=== PATIENT | female | born 1955 | race Two or more races ===

== ENCOUNTER 2024-06-05 20:19 | Inpatient (IN) | payer MEDICARE, OTHER ==
[~2024-06-05] VITALS: Ht 167.6 cm; Wt 86.2 kg
[2024-06-05 20:15] VITALS: BP 143/73; TEMP 98; O2SAT 98
[2024-06-05] MEDS ORDERED: LORAZEPAM 0.5 MG TABLET PO PRN (21:00)
[2024-06-05] MEDS ORDERED: MAGNESIUM HYDROXIDE 30 ML UDC PO PRN (21:00)
[2024-06-05] MEDS: BLOOD SUGAR DIAGNOSTIC 1 EACH STRIP IN ONE (21:40)
[2024-06-05] MEDS ORDERED: AMLO2.5T4 PO (23:12)
[2024-06-05] MEDS ORDERED: HYDR50TA61 PO (23:12)
[2024-06-05] MEDS ORDERED: MELO-107 PO (23:12)
[2024-06-05] MEDS ORDERED: METF-442 PO (23:12)
[2024-06-05] MEDS ORDERED: SITA100T PO (23:12)
[2024-06-05] MEDS ORDERED: CLON0.5T4 PO (23:12)
[2024-06-05] MEDS ORDERED: DICL100G26 TP (23:12)
[2024-06-05] MEDS ORDERED: BUPR200T31 PO (23:12)
[2024-06-05] MEDS ORDERED: HYDR-3980 PO (23:12)
[2024-06-05] MEDS ORDERED: LURA80TA PO (23:12)
[2024-06-05] MEDS: ACETAMINOPHEN 325 MG TABLET PO PRN (23:16)
[2024-06-05] MEDS: ZOLPIDEM TARTRATE 5 MG TABLET PO PRN (23:52)
[2024-06-06] MEDS ORDERED: DEXTROSE 50%-WATER 50 ML DISP.SYRIN IV PRN
[2024-06-06] MEDS: BLOOD SUGAR DIAGNOSTIC 1 EACH STRIP IN SCH (07:18)
[2024-06-06 07:51] LABS: CHOLESTEROL 175 mg/dL (<200); HDL CHOLESTEROL 50 mg/dL (40-60); LDL 108 mg/dL (0-99); TRIGLYCERIDES 95 mg/dL (30-150)
[2024-06-06 07:52] LABS: ALBUMIN 3.3 g/dL (3.4-5.0); BILIRUBIN,TOTAL 0.6 mg/dL (0.2-1.0); CALCIUM, SERUM 8.5 mg/dL (8.5-10.1); CREATININE 0.9 mg/dL (0.6-1.3); POTASSIUM 3.6 mmol/L (3.5-5.1); TOTAL PROTEIN, SERUM 6.5 g/dL (6.4-8.2)
[2024-06-06 08:00] VITALS: BP 159/78; TEMP 98.7; O2SAT 98
[2024-06-06] MEDS: LINAGLIPTIN 5 MG TABLET PO SCH (08:40)
[2024-06-06] MEDS: HYDROCODONE/APAP 10/325MG TABLET PO SCH (08:40)
[2024-06-06] MEDS: METFORMIN 500 MG TABLET PO SCH (08:40)
[2024-06-06] MEDS: AMLODIPINE BESYLATE 2.5 MG TABLET PO SCH (08:41)
[2024-06-06] MEDS: MELOXICAM 7.5 MG TABLET PO SCH (08:41)
[2024-06-06] MEDS ORDERED: hydrOXYzine PAMOATE 50 MG CAPSULE PO PRN (11:00)
[2024-06-06] MEDS ORDERED: diphenhydrAMINE HCL 50 MG CAPSULE PO PRN (11:00)
[2024-06-06] MEDS: DICLOFENAC TOPICAL 100 GM TUBE TP SCH (11:48)
[2024-06-06] MEDS: buPROPion SR 100 MG TABLET.ER PO SCH (11:48)
[2024-06-06] MEDS ORDERED: hydrOXYzine PAMOATE 25 MG CAPSULE PO PRN (12:00)
[2024-06-06 16:00] VITALS: BP 133/67; TEMP 98.6; O2SAT 96
[2024-06-06] MEDS: risperiDONE 1 MG TABLET PO SCH (18:09)
[2024-06-06 20:00] VITALS: BP 149/67; TEMP 98.3; O2SAT 99
[2024-06-06] MEDS: clonazePAM 0.5 MG TABLET PO SCH (22:18)
[2024-06-06] MEDS: INSULIN REGULAR, HUMAN 100 UNIT/ML 3 ML VIAL SQ PRN (22:28)
[2024-06-07 08:00] VITALS: BP 150/71; TEMP 97.7; O2SAT 97
[2024-06-07 16:00] VITALS: BP 113/65; TEMP 97.9; O2SAT 99
[2024-06-07] MEDS: MAG HYDROX/AL HYDROX/SIMETH 30 ML UDC PO PRN (18:20)
[2024-06-07 20:00] VITALS: BP 134/67; TEMP 98.3; O2SAT 100
[2024-06-07] MEDS: ONDANSETRON 4 MG TAB.RAPDIS SL PRN (20:35)
[2024-06-08 08:00] VITALS: BP 133/80; TEMP 97.5; O2SAT 99
[2024-06-08 16:00] VITALS: BP 122/72; TEMP 98; O2SAT 97
[2024-06-08 19:53] VITALS: BP 126/73; TEMP 98.3; O2SAT 96
[2024-06-09 08:00] VITALS: BP 139/80; TEMP 98; O2SAT 98
[2024-06-09 16:00] VITALS: BP 134/90; TEMP 98; O2SAT 96
[2024-06-09 22:16] VITALS: BP 123/64; TEMP 98.2; O2SAT 97
[2024-06-10 08:00] VITALS: BP 131/74; TEMP 98.2; O2SAT 98
[2024-06-10 15:08] VITALS: BP 148/75; TEMP 98.6; O2SAT 100
[2024-06-10 20:37] VITALS: BP 160/78; TEMP 98.6; O2SAT 98
[2024-06-10 21:28] VITALS: BP 144/78; TEMP 97.2; O2SAT 97
[2024-06-11 08:00] VITALS: BP 136/52; TEMP 98.4; O2SAT 95
[2024-06-11 16:00] VITALS: BP 139/65; TEMP 98.4; O2SAT 98
[2024-06-11] MEDS: risperiDONE 1 MG TABLET PO SCH (16:34)
[2024-06-11 22:16] VITALS: BP 135/63; TEMP 98.4; O2SAT 98
[2024-06-12 08:00] VITALS: BP 142/69; TEMP 98.7; O2SAT 96
[2024-06-12 16:00] VITALS: BP 116/74; TEMP 98.1; O2SAT 98
[2024-06-12 22:39] VITALS: BP 120/54; TEMP 98.3; O2SAT 95
[2024-06-13 08:00] VITALS: BP 153/71; TEMP 97.9; O2SAT 96
[2024-06-13 08:13] VITALS: BP 125/97
== END 2024-06-13 12:40 | DRG 885 ==
LOC: GPS 20:19
PROVIDERS: ADMIT Psychiatry & Neurology Psychiatry
DX: F31.64 Bipolar disorder, current episode mixed, severe, with psychotic features (principal); E11.9 Type 2 diabetes mellitus without complications; I10 Essential (primary) hypertension; E66.9 Obesity, unspecified; E78.5 Hyperlipidemia, unspecified; F41.9 Anxiety disorder, unspecified; Z20.822 Contact with and (suspected) exposure to COVID-19; Z73.6 Limitation of activities due to disability; Z68.30 Body mass index [BMI] 30.0-30.9, adult; Z79.84 Long term (current) use of oral hypoglycemic drugs; Z79.899 Other long term (current) drug therapy
CPT/HCPCS: 36415; 80053-TC; 80061-TC; 82962-TC; 87081-TC; 97112-TC; 97116-TC; 97530-TC; J1815; Q0162; Q0177

== ENCOUNTER 2024-10-01 13:00 | Inpatient (IN) | payer MEDICARE, OTHER ==
[~2024-10-01] VITALS: Ht 167.6 cm; Wt 86.2 kg
[~2024-10-01 13:00] MED LIST: AMLO2.5T4 PO; BUPR200T31 PO; CLON0.5T4 PO; DICL100G26 TP; HYDR-3980 PO; HYDR50TA61 PO; LURA80TA PO; MELO-107 PO; METF-442 PO; SITA100T PO
[2024-10-01 13:19] LABS: BASOPHILS % (AUTO) 0.8 % (0.0-2.0); EOSINOPHILS # (AUTO) 0.4 K/uL (0.0-0.7); EOSINOPHILS % (AUTO) 6.4 % (0.0-6.0); HEMATOCRIT 38 % (33-45); LYMPHOCYTES # (AUTO) 1.8 K/uL (0.8-4.8); LYMPHOCYTES % (AUTO) 27.1 % (20.0-44.0); MEAN CORPUSCULAR HEMOGLOBIN 31 PG (26.0-33.0); MEAN CORPUSCULAR HGB CONC 34 g/dl (31.0-36.0); MEAN CORPUSCULAR VOLUME 90 fL (82-100); MONOCYTES # (AUTO) 0.9 K/uL (0.1-1.30); MONOCYTES % (AUTO) 13.4 % (2.0-12.0); NEUTROPHILS # (AUTO) 3.4 K/uL (1.8-8.9); NEUTROPHILS % (AUTO) 52.3 % (43.0-81.0); PLATELET COUNT (AUTO) 318 K/uL (150-450); RED BLOOD CELL COUNT(AUTO) 4.26 MIL/uL (4.0-5.2); RED CELL DISTRIBUTION WIDTH 14.9 % (11.5-15.0); WHITE BLOOD COUNT (AUTO) 6.5 K/uL (4.3-11.0)
[2024-10-01 13:36] LABS: CALCIUM, SERUM 9.4 mg/dL (8.5-10.1); CARBON DIOXIDE 26 mmol/L (21-32); CHLORIDE 105 mmol/L (98-107); GLUCOSE 114 mg/dL (74-106); SODIUM SERUM 141 mmol/L (136-145); UREA NITROGEN, BLOOD 27 mg/dL (7-18)
[2024-10-01 13:41] LABS: APPEARANCE,URINE CLEAR (CLEAR); BILIRUBIN,URINE NEGATIVE (NEGATIVE); BLOOD, URINE 1+ Ery/uL (NEGATIVE); COLOR,URINE YELLOW (YELLOW); KETONES,URINE NEGATIVE (NEGATIVE); LEUKOCYTE ESTERASE ,URINE NEGATIVE (NEGATIVE); NITRITE, URINE NEGATIVE (NEGATIVE); PROTEIN,URINE NEGATIVE (NEGATIVE); UGLUCOSE NEGATIVE (NEGATIVE)
[2024-10-01 13:41] LABS: ALANINE AMINOTRANSFERASE 14 U/L (12-78); ALBUMIN 3.3 g/dL (3.4-5.0); ALCOHOL, BLOOD < 3 mg/dL (0-10); ALKALINE PHOSPHATASE 94 U/L (46-116); ASPARTATE AMINOTRANSFERASE 8 U/L (15-37); BILIRUBIN,DIRECT 0.1 mg/dL (0.0-0.2); BILIRUBIN,TOTAL 0.3 mg/dL (0.2-1.0)
[2024-10-01 13:47] LABS: ACETAMINOPHEN <10 ug/ml (10-30)
[2024-10-01 13:49] LABS: AMPHETAMINE, URINE NEGATIVE (NEGATIVE); BARBITURATE, URINE NEGATIVE (NEGATIVE); BENZODIAZEPINE, URINE NEGATIVE (NEGATIVE); CANNABINOID, URINE NEGATIVE (NEGATIVE); COCCAINE, URINE NEGATIVE (NEGATIVE); OPIATE, URINE NEGATIVE (NEGATIVE); PHENCYCLIDINE SCREEN,URINE NEGATIVE (NEGATIVE)
[2024-10-01 13:59] LABS: ADD URINE CULTURE NO; BACTERIA,URINE Few /HPF (None Seen); WBC,URINE 0-2 /HPF (0-3)
[2024-10-01] MEDS ORDERED: LURA40TA PO (15:07)
[2024-10-01] MEDS ORDERED: BUPR100T7 PO (15:07)
[2024-10-01 15:22] LABS: SALICYLATE 1.3 mg/dL (2.8-20.0)
[2024-10-01 15:23] LABS: ACETAMINOPHEN 0 ug/ml (10-30); ALCOHOL, BLOOD < 3 mg/dL (0-10)
[2024-10-01] MEDS ORDERED: ZOLPIDEM TARTRATE 5 MG TABLET PO PRN (15:30)
[2024-10-01] MEDS ORDERED: MAG HYDROX/AL HYDROX/SIMETH 30 ML UDC PO PRN (15:30)
[2024-10-01] MEDS ORDERED: MAGNESIUM HYDROXIDE 30 ML UDC PO PRN (15:30)
[2024-10-01] MEDS ORDERED: DEXTROSE 50%-WATER 50 ML DISP.SYRIN IV PRN (15:30)
[2024-10-01] MEDS: BLOOD SUGAR DIAGNOSTIC 1 EACH STRIP IN ONE (15:30)
[2024-10-01 16:58] VITALS: BP 141/62; TEMP 98.7; O2SAT 96
[2024-10-01] MEDS: ACETAMINOPHEN 325 MG TABLET PO PRN (17:07)
[2024-10-01] MEDS: METFORMIN 500 MG TABLET PO SCH (17:07)
[2024-10-01] MEDS: BLOOD SUGAR DIAGNOSTIC 1 EACH STRIP IN SCH (17:07)
[2024-10-01] MEDS: LORAZEPAM 1 MG TABLET PO PRN (20:36)
[2024-10-01 20:51] VITALS: BP 168/85; TEMP 98.7; O2SAT 99
[2024-10-02 07:58] LABS: ALBUMIN 3.3 g/dL (3.4-5.0); BILIRUBIN,TOTAL 0.7 mg/dL (0.2-1.0); CALCIUM, SERUM 9.1 mg/dL (8.5-10.1); CREATININE 0.8 mg/dL (0.6-1.3); POTASSIUM 3.9 mmol/L (3.5-5.1)
[2024-10-02 07:59] LABS: CHOLESTEROL 177 mg/dL (<200); HDL CHOLESTEROL 53 mg/dL (40-60); LDL 111 mg/dL (0-99); TRIGLYCERIDES 77 mg/dL (30-150)
[2024-10-02 08:00] VITALS: BP 153/76; TEMP 97.8; O2SAT 96
[2024-10-02] MEDS: LINAGLIPTIN 5 MG TABLET PO SCH (08:51)
[2024-10-02] MEDS: MELOXICAM 7.5 MG TABLET PO SCH (08:52)
[2024-10-02] MEDS: AMLODIPINE BESYLATE 2.5 MG TABLET PO SCH (08:52)
[2024-10-02] MEDS: risperiDONE 1 MG TABLET PO SCH (10:41)
[2024-10-02] MEDS: DIVALPROEX SODIUM 250 MG TABLET.DR PO SCH (10:41)
[2024-10-02] MEDS: buPROPion SR 100 MG TABLET.ER PO SCH (10:45)
[2024-10-02 16:00] VITALS: BP 133/66; TEMP 98.1; O2SAT 98
[2024-10-02] MEDS: INSULIN REGULAR, HUMAN 100 UNIT/ML 3 ML VIAL SQ PRN (17:38)
[2024-10-02 19:37] VITALS: BP 137/75; TEMP 98.2; O2SAT 98
[2024-10-02] MEDS: ZOLPIDEM TARTRATE 5 MG TABLET PO PRN (21:48)
[2024-10-02 22:20] VITALS: BP 129/72; TEMP 98; O2SAT 98
[2024-10-03 08:00] VITALS: BP 139/75; TEMP 97.8; O2SAT 98
[2024-10-03 16:00] VITALS: BP 147/60; TEMP 98.1; O2SAT 99
[2024-10-03 20:00] VITALS: BP_SYST 150; BP_SYST 156; BP_DIAS 62; BP_DIAS 74; TEMP 97.7; TEMP 97.8; O2SAT 100; O2SAT 97
[2024-10-04] MEDS: LORAZEPAM 0.5 MG TABLET PO PRN (00:16)
[2024-10-04 08:00] VITALS: BP 153/98; TEMP 98.2; O2SAT 98
[2024-10-04 16:00] VITALS: BP 153/73; TEMP 98; O2SAT 94
[2024-10-04 20:00] VITALS: BP 141/77; TEMP 97.5; O2SAT 96
[2024-10-05 08:00] VITALS: BP 152/70; TEMP 98.7; O2SAT 97
[2024-10-05 16:00] VITALS: BP 138/69; TEMP 98.7; O2SAT 95
[2024-10-05 20:16] VITALS: BP 159/77; TEMP 98.4; O2SAT 96
[2024-10-06 08:00] VITALS: BP 151/56; TEMP 97.5; O2SAT 94
[2024-10-06 16:00] VITALS: BP 137/61; TEMP 98; O2SAT 95
[2024-10-06 20:35] VITALS: BP 157/68; TEMP 97.9; O2SAT 95
[2024-10-07] MEDS: buPROPion SR 100 MG TABLET.ER PO SCH (08:37)
[2024-10-07 08:43] VITALS: BP 150/82; TEMP 97.8; O2SAT 95
[2024-10-07 16:00] VITALS: BP 151/82; TEMP 98.1; O2SAT 97
[2024-10-07 20:43] VITALS: BP 146/67; TEMP 97.7; O2SAT 96
[2024-10-08 08:00] VITALS: BP 152/90; TEMP 98.7; O2SAT 96
[2024-10-08] MEDS: DIVALPROEX SODIUM 250 MG TABLET.DR PO SCH (09:00)
[2024-10-08 16:00] VITALS: BP 161/77; TEMP 98.8; O2SAT 97
[2024-10-08 20:00] VITALS: BP 147/71; TEMP 98.3; O2SAT 95
[2024-10-09 08:00] VITALS: BP 166/84; TEMP 97.8; O2SAT 94
[2024-10-09] MEDS: hydrALAZINE HCL 10 MG TABLET PO SCH (12:00)
[2024-10-09 16:17] VITALS: BP_SYST 128; BP_SYST 138; BP_DIAS 72; BP_DIAS 78; TEMP 97.8; TEMP 98.7; O2SAT 100; O2SAT 98
[2024-10-09 21:27] VITALS: BP 149/78; TEMP 97.8; O2SAT 95
[2024-10-10 08:00] VITALS: BP 150/79; TEMP 97.7; O2SAT 96
[2024-10-10 08:37] VITALS: BP 159/79
[2024-10-10] MEDS ORDERED: hydrALAZINE HCL 10 MG TABLET PO SCH (21:00)
== END 2024-10-10 14:35 | DRG 885 ==
LOC: ER 13:07 → GPS 14:51
PROVIDERS: ADMIT Psychiatry & Neurology Psychiatry; ATTEND Nurse Practitioner Acute Care
DX: F31.64 Bipolar disorder, current episode mixed, severe, with psychotic features (principal); F41.9 Anxiety disorder, unspecified; M19.90 Unspecified osteoarthritis, unspecified site; G47.00 Insomnia, unspecified; I10 Essential (primary) hypertension; E78.5 Hyperlipidemia, unspecified; E66.9 Obesity, unspecified; E11.9 Type 2 diabetes mellitus without complications; Z20.822 Contact with and (suspected) exposure to COVID-19; Z73.6 Limitation of activities due to disability; Z68.30 Body mass index [BMI] 30.0-30.9, adult; F25.0 Schizoaffective disorder, bipolar type
CPT/HCPCS: 36415; 80048-TC; 80053-TC; 80061-TC; 80076-TC; 80164-TC; 81001; 82962-TC; 85025-TC; 97110-TC; 97116-TC; 97164; 97530-TC; G0480; J1815